=== PATIENT | female | born 1965 | race American Indian/Alaskan Native ===

== ENCOUNTER 2019-03-26 07:14 | Day surgery (SDC) | payer OTHER ==
--- NOTE | 2019-03-26 07:50 | CP.SDSHP ---
<Raj Rodríguez - Last Filed: 03/26/19 09:20> Same Day Surgery H & P - History Proposed Procedure: EGD Pre-Op Diagnosis: epigastric pain. nausea/vomiting. GERD - Previous Medical/Surgical History Misc: Other (sickle cell trait, thalessemia, endometrosis) Previous Surgical History: , ovarian cyst - Current Medications Current Medications: Denies - Physical Exam General Appearance: no acute distress Mental Status: Alert & Oriented x3 Neuro: WNL Heart: WNL Lungs: WNL GI: WNL (epigastric tenderness, no organomegaly, no distention; soft) - {Optional Preform as Required} Abdomen: Other (epigastric tenderness) - Impression Impression: epigastric pain. heartburn. sickle cell trait. thalessemia. endometrosis Pt. Evaluated Today:Candidate for Anesthesia & Procedure: Yes - Date & Time Date: 03/26/19 Time: 07:45 Short Stay Discharge - Short Stay Discharge Admitting Diagnosis/Reason for Visit: EPIGASTRIC PAIN / HEARTBURN / NAUSEA Disposition: HOME/ ROUTINE <Enzo Alonso - Last Filed: 03/26/19 09:27> Same Day Surgery H & P - Allergies Allergies: Allergies EGG Allergy (Verified 03/26/19 08:05) RASH levofloxacin [From Levaquin] Adverse Reaction (Verified 03/26/19 08:05) ANAPHYLAXIS - Physical Exam Vital Signs: Vital Signs 03/26/19 07:45 Temperature 98.2 F Pulse Rate 100 H Respiratory 20 Rate Blood Pressure 121/99 H O2 Sat by Pulse 100 Oximetry Attending/Attestation - Attestation I have personally seen and examined this patient.: Yes I have fully participated in the care of the patient.: Yes I have reviewed all pertinent clinical information: Yes Notes (Text): 03/26/19 09:23 Patient unable to eat with weakness and persistent N/V, advised to go to ER for evaluation but refused stating my PCP told me to see GI and have an EGD done since i had similar symtpoms before. Risks and benefits understood. EGD to be done and if findings are negative will refer to ED upon discharge.
[2019-03-26 08:06] VITALS: BMI 36.5
[2019-03-26] MEDS ORDERED: Midazolam 2 MG/2 ML VIAL ONE (10:07)
[2019-03-26] MEDS ORDERED: Propofol 10 mg/ml Inj (20 ML) ONE (10:07)
[2019-03-26] MEDS ORDERED: Lidocaine Hydrochloride 5 ML INJ ONE (10:08)
[2019-03-26] MEDS ORDERED: Pantoprazole 40 mg EC Tab PO ONE (10:15)
[2019-03-26 12:47] VITALS: TEMP 98
[2019-03-26 12:53] VITALS: BP 124/92; PULSE 84; RESP 16; O2SAT 99
--- NOTE | 2019-03-27 11:17 | CARD ---
APPROVED REPORT Date of service: 03/26/2019 EKG Measurement Heart [id number] <Conclusion> Normal sinus rhythm Junctional ST depression, probably normal Borderline ECG
== END 2019-03-26 13:30 | disposition home or self-care (01) ==
LOC: C.ENDO 07:14
PROVIDERS: ATTEND Internal Medicine Gastroenterology
DX: K21.0 Gastro-esophageal reflux disease with esophagitis (principal); K44.9 Diaphragmatic hernia without obstruction or gangrene; K29.70 Gastritis, unspecified, without bleeding; D57.3 Sickle-cell trait
CPT/HCPCS: 36415; 43239; 84702; 88305; J2250; J2704; J3010

== ENCOUNTER 2019-03-26 14:08 | Inpatient (IN) | payer OTHER ==
[2019-03-26 14:09] VITALS: BMI 36.5
[2019-03-26] MEDS ORDERED: Sodium Chloride 0.9% 1,000 ML IV ONE (15:12)
[2019-03-26 15:47] LABS: BASO % 0.2 % (0.0-2.0); EOS % 0.1 % (0.0-4.0); HEMOGLOBIN 15.3 g/dL (11.0-16.0); LYMPH # 0.8 K/uL (1.0-4.3); LYMPH % 17.6 % (20.0-40.0); MEAN CELL VOLUME 85.1 fL (81.0-99.0); MEAN CORPUSCULAR HEMOGLOBIN 28.6 pg (27.0-31.0); MEAN CORPUSCULAR HGB CONC 33.6 g/dL (33.0-37.0); MEAN PLATELET VOLUME 10.7 fL (7.2-11.7); MONO # 0.4 K/uL (0.0-0.8); MONO % 8.9 % (0.0-10.0); NEUT # 3.2 K/uL (1.8-7.0); NEUT % 73.2 % (50.0-75.0); NRBC % 0.2 % (0.0-2.0); RBC 5.35 Mil/uL (3.80-5.20); RED CELL DISTRIBUTION WIDTH 14.8 % (11.5-14.5); WHITE BLOOD COUNT 4.4 K/uL (4.8-10.8)
[2019-03-26 16:06] LABS: BLOOD UREA NITROGEN 13 mg/dL (7-17); CALCIUM 9.1 mg/dl (8.6-10.4); GFR NON-AFRICAN AMERICAN > 60; LIPASE 29 U/L (23-300)
[2019-03-26] MEDS ORDERED: Iodixanol 320 MG/ML 100 ML BOTTLE IV ONE (16:24)
[2019-03-26 16:45] LABS: ALB/GLOB RATIO 1.1 (1.0-2.1); ALBUMIN 4.2 g/dL (3.5-5.0); ALT/SGPT 17 U/L (9-52); AST/SGOT 35 U/L (14-36)
--- NOTE | 2019-03-26 17:49 | CT ---
Date of service: 03/26/2019 PROCEDURE: CT Abdomen and Pelvis with contrast HISTORY: left-sided abdominal pain s/p endoscopy COMPARISON: None. TECHNIQUE: Intravenous contrast dose: 100 cc Visipaque 320. Radiation dose: Total exam DLP = 1172.39 mGy-cm. This CT exam was performed using one or more of the following dose reduction techniques: Automated exposure control, adjustment of the mA and/or kV according to patient size, and/or use of iterative reconstruction technique. FINDINGS: LOWER THORAX: Unremarkable. LIVER: Unremarkable. No gross lesion or ductal dilatation. Incidental low-attenuation area in the posterior segment right hepatic lobe of uncertain etiology or significance. This is an amorphous focus. No additional abnormalities detected. GALLBLADDER AND BILE DUCTS: Unremarkable. PANCREAS: Unremarkable. No gross lesion or ductal dilatation. SPLEEN: Unremarkable. ADRENALS: Unremarkable. No mass. KIDNEYS AND URETERS: Unremarkable. No hydronephrosis. No solid mass. VASCULATURE: Unremarkable. No aortic aneurysm. No atherosclerotic calcification or mural plaque present. BOWEL: Diffuse gastric wall thickening in the nondistended stomach. No focal masses identified. Diverticulosis without an acute inflammatory component or other associated pathologic process. APPENDIX: A normal appendix is visualized in it's entirety. PERITONEUM: Unremarkable. No free fluid. No free air. LYMPH NODES: Unremarkable. No enlarged lymph nodes. BLADDER: Unremarkable. REPRODUCTIVE: Unremarkable. BONES: No acute fracture. OTHER FINDINGS: None. IMPRESSION: No acute findings related to/ accounting for the clinical presentation. Diffuse gastric wall thickening. Focal area of abnormal attenuation/contrast enhancement in the posterior segment the right hepatic lobe.
[2019-03-26 19:44] LABS: SQUAMOUS EPITHIAL 1 /hpf (0-5); URINE BILIRUBIN NEGATIVE (NEGATIVE); URINE BLOOD NEGATIVE (NEGATIVE); URINE CLARITY Clear (Clear); URINE COLOR Yellow (YELLOW); URINE GLUCOSE (UA) NORMAL (Normal); URINE LEUKOCYTE ESTERASE NEG Leu/uL (Negative); URINE PROTEIN NEGATIVE (NEGATIVE)
--- NOTE | 2019-03-26 21:15 | C.PDOC ---
History Of Present Illness 53 y/o female presents to the ER s/p endoscopy complaining of left sided abdominal pain. Patient states that she is not able to keep much PO down for the past several days prior to endoscopy. Patient reports that she had has been hav ing multiple episodes of nausea and vomiting.Denies having fever,chills,CP,SOB,and diarrhea. Chief Complaint (Nursing): GI Problem History Per: Patient History/Exam Limitations: no limitations Onset/Duration Of Symptoms: Days Current Symptoms Are (Timing): Still Present Severity: Moderate Past Medical History Reviewed: Historical Data, Nursing Documentation, Vital Signs Vital Signs: Last Vital Signs Temp Pulse 70 03/26/19 20:36 Resp 14 03/26/19 20:36 BP 124/72 03/26/19 20:36 Pulse Ox 97 03/26/19 20:36 Primary Care Provider: Non [facility] Provider, - Medical History PMH: Anemia, Gastritis Denies: Chronic Kidney Disease Surgical History: Endoscopy Family History: States: No Known Family Hx - Social History Hx Alcohol Use: No Hx Substance Use: No - Immunization History Hx Tetanus Toxoid Vaccination: No Hx Influenza Vaccination: No Hx Pneumococcal Vaccination: No Review Of Systems Except As Marked, All Systems Reviewed And Found Negative. Constitutional: Negative for: Fever, Chills Gastrointestinal: Positive for: Nausea, Vomiting, Abdominal Pain. Negative for: Diarrhea Physical Exam - Physical Exam Appears: Other (pt is actively vomiting in ER) Skin: Normal Color, Warm, Dry Head: Atraumatic, Normacephalic Eye(s): bilateral: Normal Inspection Nose: Normal Oral Mucosa: Moist Neck: Supple Chest: Symmetrical Cardiovascular: Rhythm Regular Respiratory: Normal Breath Sounds, No Rales, No Rhonchi, No Wheezing Gastrointestinal/Abdominal: Soft, Tenderness (LUQ tenderness), No Guarding, No Rebound Neurological/Psych: Oriented x3, Normal Speech ED Course And Treatment - Laboratory Results Result Diagrams: 03/26/19 15:40 03/26/19 15:40 Lab Results: Total Bilirubin 1.3 mg/dL (0.2-1.3) 03/26/19 15:40 AST 35 U/L (14-36) 03/26/19 15:40 ALT 17 U/L (9-52) 03/26/19 15:40 Alkaline Phosphatase 61 U/L (38-126) 03/26/19 15:40 Total Protein 8.0 g/dL (6.3-8.3) 03/26/19 15:40 Albumin 4.2 g/dL (3.5-5.0) 03/26/19 15:40 Globulin 3.8 gm/dL (2.2-3.9) 03/26/19 15:40 Albumin/Globulin Ratio 1.1 (1.0-2.1) 03/26/19 15:40 Lipase 29 U/L (23-300) 03/26/19 15:40 Urine Color Yellow (YELLOW) 03/26/19 19:33 Urine Clarity Clear (Clear) 03/26/19 19:33 Urine pH 6.0 (5.0-8.0) 03/26/19 19:33 Ur Specific [place] 1.045 (1.003-1.030) H 03/26/19 19:33 Urine Protein Negative mg/dL (NEGATIVE) 03/26/19 19:33 Urine Glucose (UA) Normal mg/dL (Normal) 03/26/19 19:33 Urine Ketones 1+ mg/dL (NEGATIVE) H 03/26/19 19:33 Urine Blood Negative (NEGATIVE) 03/26/19 19:33 Urine Nitrate Negative (NEGATIVE) 03/26/19 19:33 Urine Bilirubin Negative (NEGATIVE) 03/26/19 19:33 Urine Urobilinogen 2.0 mg/dL (0.2-1.0) H 03/26/19 19:33 Ur Leukocyte Esterase Neg Travis/uL (Negative) 03/26/19 19:33 Urine WBC (Auto) 2 /hpf (0-5) 03/26/19 19:33 Urine RBC (Auto) 1 /hpf (0-3) 03/26/19 19:33 Ur Squamous Epith Cells 1 /hpf (0-5) 03/26/19 19:33 O2 Sat by Pulse Oximetry: 97 (RA) Pulse Ox Interpretation: Normal - CT Scan/US CT-Abd & Pelv. Other Rad Studies (CT/US): Read By Radiologist, Radiology Report Reviewed CT/US Interpretation: Date of service: 03/26/2019. PROCEDURE: CT Abdomen and Pelvis with contrast. HISTORY: left-sided abdominal pain s/p endoscopy. COMPARISON: None. TECHNIQUE: Intravenous contrast dose: 100 cc Visipaque 320. Radiation dose: Total exam DLP = 1172.39 mGy-cm. This CT exam was performed using one or more of the following dose reduction techniques: Automated exposure control, adjustment of the mA and/or kV according to patient size, and/or use of iterative reconstruction technique. FINDINGS: LOWER THORAX: Unremarkable. LIVER: Unremarkable. No gross lesion or ductal dilatation. Incidental low- attenuation area in the posterior segment right hepatic lobe of uncertain etiology or significance. This is an amorphous focus. No additional abnorma lities detected. GALLBLADDER AND BILE DUCTS: Unremarkable. PANCREAS: Unremarkable. No gross lesion or ductal dilatation. SPLEEN: Unremarkable. ADRENALS: Unremarkable. No mass. KIDNEYS AND URETERS: Unremarkable. No hydronephrosis. No solid mass. VASCULATURE: Unremarkable. No aortic aneurysm. No atherosclerotic calcification or mural plaque present. BOWEL: Diffuse gastric wall thickening in the nondistended stomach. No focal masses identified. Diverticulosis without an acute inflammatory component or other associated pathologic process. APPENDIX: A normal appendix is visualized in it's entirety. PERITONEUM: Unremarkable. No free fluid. No free air. LYMPH NODES: Unremarkable. No enlarged lymph nodes. BLADDER: Unremarkable. REPRODUCTIVE: Unremarkable. BONES: No acute fracture. OTHER FINDINGS: None. IMPRESSION: No acute findings related to/ accounting for the clinical presentation. Diffuse gastric wall thickening. Focal area of abnormal attenuation/contrast enhancement in the posterior segment the right hepatic lobe. Medical Decision Making Medical Decision Making: Plan: --Labs --UA --CT-Abd & Pelv. --IV Fluids --Pepcid IV --Zofran IV Updates: On re-evaluation, patient continues to vomit in ER despite medications. Case discussed with . Patient will be admitted under the service of for intractable vomiting. Disposition - Disposition Disposition: HOSPITALIZED Disposition Time: 17:30 Condition: STABLE - Clinical Impression Clinical Impression: Gastritis, Intractable vomiting - Scribe Statement The provider has reviewed the documentation as recorded by the Wanda Parks Provider Attestation: All medical record entries made by the Saumyaibjeromy were at my direction and personally dictated by me. I have reviewed the chart and agree that the record accurately reflects my personal performance of the history, physical exam, medical decision making, and the department course for this patient. I have also personally directed, reviewed, and agree with the discharge instructions and disposition.
[2019-03-26] MEDS: Dextrose 5%/0.45% NS 1,000 ML IV SCH (22:12)
--- NOTE | 2019-03-27 09:09 | CP.PCM.PN ---
Subjective - Date & Time of Evaluation Date of Evaluation: 03/27/19 Time of Evaluation: 08:45 - Subjective Subjective: PGY [address] Montelongo 53 year old female with past medical history of endometriosis, ovarian cysts, fibromyalgia, thalasemia anemia (pt unsure of which type), sickle cell trait, gastritis is admitted ot hospital for intractable vomiting.l Patient states that for past 1 month she has nausea and vomiting. she is unable to tolerate po intake as it causes her to vomit. Patient was seen by PMD who sent patient to GI, Dr. Betancur. After performing EGD yesterday (03/26), pt was sent to ED by Dr. Betancur as her N/V did not resolve. In ED, CT of abd/pelvis with IV contrast showed diffuse gastric wall thickening. Currently, pt continues ot complain of abdominal pain in epigastric region and nausea. Also C/O chest pain. denies having any F/C, change sin bowel or bladder. PMHx: stated above Sx; c section 1986, EGD 03/26/19 Social; denies tobacco, ETOH or drug use Objective - Vital Signs/Intake and Output Vital Signs (last 24 hours): Temp Pulse Resp BP Pulse Ox 98.1 F 66 20 142/83 99 03/27/19 00:10 03/27/19 00:10 03/27/19 00:10 03/27/19 00:10 03/27/19 00:10 - Medications Medications: Current Medications Enoxaparin Sodium (Lovenox) 40 mg SC DAILY [facility] Dextrose/Sodium Chloride (Dextrose 5%/0.45% Ns 1000 Ml) 1,000 mls @ 100 mls/hr IV .Q10H [facility] Last Admin: 03/26/19 22:12 Dose: 100 mls/hr Ondansetron HCl (Zofran Inj) 4 mg IVP Q6H PRN PRN Reason: Nausea/Vomiting Last Admin: 03/27/19 04:42 Dose: 4 mg Pantoprazole Sodium (Protonix Inj) 40 mg IVP DAILY [facility] - Labs Labs: 03/26/19 15:40 03/26/19 15:40 - Constitutional Appears: Non-toxic, No Acute Distress - Head Exam Head Exam: ATRAUMATIC, NORMOCEPHALIC - ENT Exam ENT Exam: Mucous Membranes Moist - Respiratory Exam Respiratory Exam: Clear to Ausculation Bilateral. absent: Accessory Muscle Use, Rales, Rhonchi, Wheezes, Respiratory Distress - Cardiovascular Exam Cardiovascular Exam: REGULAR RHYTHM, +S1, +S2. absent: Gallop, Rubs, Murmur - GI/Abdominal Exam GI & Abdominal Exam: Soft, Normal Bowel Sounds. absent: Distended, Firm, Guarding, Rigid, Tenderness, Organomegaly - Extremities Exam Extremities Exam: absent: Pedal Edema, Tenderness - Neurological Exam Neurological Exam: Alert, Awake, Oriented x3 - Psychiatric Exam Psychiatric exam: Normal Affect, Normal Mood - Skin Skin Exam: Dry, Intact, Normal Color, Warm Assessment and Plan - Assessment and Plan (Free Text) Assessment: 53 year old male with past medical history of sickle cell trait, thalasemia, endometriosis is admitted for intracatable vomiting Intractable vomiting - CT of abd/pelvis with IV contrast showed diffuse gastric wall thickening; focal area of abnormal attenuation in posterior segment of hepatic lobe - Continue zofran and protanix - will check Hgb A1c with concern for gastroperesis - will check UDS with concern for marijuana cyclic vomiting syndrome - will check abd US - continue D5/half NS at 100 cc - NPO - PT/OT Chest pain - will check serial AMOL and EKGs Gastritis - Avoid NSAIDs and Aspirin - protonix 40 IV qd Hpokalemia - Potassium this morning 2.7 - potassium chloride IV Prophylaxis - Lovenox - SCDs - Protonix case will be discussed with attending, Dr. Montelongo. All orders and management per Dr. Montelongo
[2019-03-27] MEDS: Dextrose 5%/0.45% NS 1,000 ML IV SCH ×2 (09:35→17:55)
[2019-03-27] MEDS: Enoxaparin 40 mg Syringe SC SCH (09:41)
[2019-03-27 12:13] LABS: BASO % 0.2 % (0.0-2.0); EOS % 0.1 % (0.0-4.0); HEMOGLOBIN 13.9 g/dL (11.0-16.0); LYMPH # 0.8 K/uL (1.0-4.3); LYMPH % 16.3 % (20.0-40.0); MEAN CELL VOLUME 85.7 fL (81.0-99.0); MEAN CORPUSCULAR HEMOGLOBIN 29.2 pg (27.0-31.0); MEAN CORPUSCULAR HGB CONC 34.1 g/dL (33.0-37.0); MEAN PLATELET VOLUME 11.3 fL (7.2-11.7); MONO # 0.4 K/uL (0.0-0.8); MONO % 8.8 % (0.0-10.0); NEUT # 3.5 K/uL (1.8-7.0); NEUT % 74.6 % (50.0-75.0); NRBC % 0.1 % (0.0-2.0); RBC 4.75 Mil/uL (3.80-5.20); RED CELL DISTRIBUTION WIDTH 14.6 % (11.5-14.5); WHITE BLOOD COUNT 4.6 K/uL (4.8-10.8)
[2019-03-27 12:39] LABS: ALBUMIN 3.4 g/dL (3.5-5.0); ALT/SGPT 29 U/L (9-52); AST/SGOT 23 U/L (14-36); BLOOD UREA NITROGEN 8 mg/dL (7-17); CALCIUM 8.8 mg/dl (8.6-10.4); GFR NON-AFRICAN AMERICAN > 60; HDL CHOLESTEROL 23 mg/dL (30-70)
[2019-03-27 12:41] LABS: LDL CHOLESTEROL 96 mg/dL (0-129)
[2019-03-27 12:45] LABS: CK-MB 0.66 ng/mL (0.0-3.38)
[2019-03-27 18:23] LABS: BARBITURATES, UR NEGATIVE (NEGATIVE); OPIATES, UR NEGATIVE (NEGATIVE); PHENCYCLIDINE, UR NEGATIVE (NEGATIVE)
[2019-03-27 18:25] LABS: BENZODIAZEPINES, UR POSITIVE (NEGATIVE)
[2019-03-28] MEDS: Dextrose 5%/0.45% NS 1,000 ML IV SCH (02:00)
--- NOTE | 2019-03-28 06:28 | HP ---
HISTORY OF PRESENT ILLNESS: The patient is a 53 year-old female chief complaint of generalized weakness, fatigue, tiredness, nausea, vomiting, persistent gastritis. Advised to coming to the hospital. PHYSICAL EXAMINATION: GENERAL: The patient is awake, alert, and oriented. VITAL SIGNS: Temperature 98, pulse 90. HEENT: Within normal limits. NECK: Supple. CHEST: Symmetrical. HEART: Regular. ABDOMEN: Soft. EXTREMITIES: No edema. IMPRESSION AND PLAN: The patient suffers from gastritis. The patient to get bed rest, supportive care. Intravenous fluids. Zofran and Protonix. Sheri Montelongo MD
[2019-03-28 08:00] LABS: ALBUMIN 3.3 g/dL (3.5-5.0); ALT/SGPT 34 U/L (9-52); AST/SGOT 37 U/L (14-36); BLOOD UREA NITROGEN 7 mg/dL (7-17); CALCIUM 8.7 mg/dl (8.6-10.4); GFR NON-AFRICAN AMERICAN > 60
--- NOTE | 2019-03-28 08:30 | CP.PCM.PN ---
Subjective - Date & Time of Evaluation Date of Evaluation: 03/28/19 Time of Evaluation: 08:28 - Subjective Subjective: PGY3 progress note for Dr. Montelongo Pt seen and examined at bedside. No acute events overnight. Still c/o nausea and vomiting. Denies having any CP, SOB, abd pain, F/C. Patient had FLOTATION TENDER called this morning after she became weak and hypotensive on the commode. Pt was lethargic but responding to questions and following commands. Objective - Vital Signs/Intake and Output Vital Signs (last 24 hours): Temp Pulse Resp BP Pulse Ox 98.4 F 69 20 120/75 100 03/27/19 23:10 03/27/19 23:10 03/27/19 23:10 03/27/19 23:10 03/27/19 23:10 - Medications Medications: Current Medications Enoxaparin Sodium (Lovenox) 40 mg SC DAILY [facility] Last Admin: 03/27/19 09:41 Dose: 40 mg Potassium Chloride 20 meq/ (Dextrose/Sodium Chloride) 1,010 mls @ 100 mls/hr IV .Q10H6M [facility] Ondansetron HCl (Zofran Inj) 4 mg IVP Q6H PRN PRN Reason: Nausea/Vomiting Last Admin: 03/28/19 06:31 Dose: 4 mg Pantoprazole Sodium (Protonix Inj) 40 mg IVP DAILY [facility] Last Admin: 03/27/19 10:11 Dose: Not Given - Labs Labs: 03/27/19 12:00 03/28/19 07:19 - Constitutional Appears: Non-toxic, No Acute Distress - Head Exam Head Exam: ATRAUMATIC, NORMOCEPHALIC - ENT Exam ENT Exam: Mucous Membranes Moist - Respiratory Exam Respiratory Exam: Clear to Ausculation Bilateral. absent: Accessory Muscle Use, Rales, Rhonchi, Wheezes, Stridor - Cardiovascular Exam Cardiovascular Exam: REGULAR RHYTHM, +S1, +S2. absent: Gallop, Rubs, Murmur - GI/Abdominal Exam GI & Abdominal Exam: Soft, Normal Bowel Sounds. absent: Distended, Firm, Guarding, Rigid, Tenderness, Organomegaly - Extremities Exam Extremities Exam: absent: Pedal Edema, Tenderness - Neurological Exam Neurological Exam: Alert, Awake, Oriented x3 - Psychiatric Exam Psychiatric exam: Normal Affect, Normal Mood - Skin Skin Exam: Dry, Intact, Normal Color, Warm Assessment and Plan - Assessment and Plan (Free Text) Assessment: 53 year old male with past medical history of sickle cell trait, thalasemia, endometriosis is admitted for intracatable vomiting Intractable vomiting - CT of abd/pelvis with IV contrast showed diffuse gastric wall thickening; focal area of abnormal attenuation in posterior segment of hepatic lobe - Continue zofran and protanix - HgbA1c is 4.9 - UDS negative for marijuana. positive for benzo - continue D5/half NS at 100 cc + potassium chloride 20 mEq - diet advanced to CLD - PT/OT Chest pain - AMOL x 2 negative - EKG pending Gastritis - Avoid NSAIDs and Aspirin - protonix 40 IV qd Hpokalemia - D5/ 1/2 NS + 20 mEq of Potassium chloride at 100 cc - likely 2/2 N/V Hypotension -IV fluid bolus -EKG showed sinus roberto with prolonged QTc. troponins x 3 negative -CT of head showed no acute abnormality - Stat narcan given but pts symptoms didnt improve. Prophylaxis - Lovenox - SCDs - Protonix case will be discussed with attending, Dr. Montelongo. All orders and management per Dr. Montelongo
[2019-03-28] MEDS: Enoxaparin 40 mg Syringe SC SCH (10:01)
--- NOTE | 2019-03-28 10:39 | PCM.RRT ---
FRUIT OR NUT FARMER Nurses Assessment - Situation Date: 03/28/19 Time FRUIT OR NUT FARMER was called: 10:35 FRUIT OR NUT FARMER Responder Arrival Time:: 10:37 FRUIT OR NUT FARMER Location:: Med/Surg Room Number: 651B FRUIT OR NUT FARMER Reason for Call: Hypotension, Change in Mental Status - IV IV Inserted during FRUIT OR NUT FARMER?: No IV Fluids Initiated During FRUIT OR NUT FARMER?: 1L NS - Respiratory FRUIT OR NUT FARMER Delivery Method: Room Air, Nasal Cannula @L/min (1) Oxygen Flow Rate: 1 Received Nebulizer Treatments: No Was the Patient Ventilated with Bag/Mask 100% O2?: No Secretions Suctioned?: No Was the Patient Intubated?: No Was the Patient Placed on a Ventilator?: No - Medication Medications Administered During FRUIT OR NUT FARMER: none - Diagnostic Test Ordered EKG: Yes Chest X-Ray: Yes CT Scan: Yes (head) - Stat Labs Ordered FRUIT OR NUT FARMER Stat Labs Ordered: TROPONIN FRUIT OR NUT FARMER Other Labs Ordered: UDS CPR started during FRUIT OR NUT FARMER?: No - Vital Signs Vital Signs: BP 68/52 HR spO2 97% on RA - Jose Elias Coma Scale Coma Scale Eye Opening: Spontaneous Coma Scale Motor: Obeys Commands Movement Coma Scale Verbal: Confused/able to answer Coma Scale Total: 14 - Sepsis Screen Part 1 Sepsis Screen Part 1: Hypotensive - Time FRUIT OR NUT FARMER Ended Time FRUIT OR NUT FARMER Ended: 11:00 - Vital Signs at end of FRUIT OR NUT FARMER Vital Signs at end of FRUIT OR NUT FARMER: 118/69 HR 51 spO2 97% on 1 L - Recommendations 5) FRUIT OR NUT FARMER Level of Care Recommendations: Transfer to Telemetry Notifications: Attending Physician I.Reason for FRUIT OR NUT FARMER - A) Acute Change in Patient: (Select all that apply): Acute change in mental status, Acute change in SBP below Subjective: FRUIT OR NUT FARMER called for acute weakness/mental change and hypotension. Patient was on the bedside commode when suddenly, she felt weak, collapsed, and stopped talking. Patient required full assist back into bed. Vitals done and BP was 68/52. Patient put in Trendelenburg and started on 1L NS. Patient was able to talk and move extremities. She was oriented to person and place. She could not describe how she felt. Nurse said prior to episode, she was fully alert and oriented. She reports that patient just had a visitor- her significant other, Evans. Patient denies taking any food/drinks/mediations/drugs that she was not supposed to. Patient's BP improved. Her HR fluctuated from 50s-70s. Stat Amol, UDS, CT head, CXR, and EKG ordered. Patient's first 2 ROMIs negative. CBC and CMP done this morning without any acute abnormalities. Patient was admitted yesterday and was positive for benzos. - Neurological Status (Select all that apply): Alert, Responsive, Verbal, Follows Commands, Lethargic - Respiratory Oxygen Delivery Method: Room Air, Nasal Cannula @L/min (1) Oxygen Flow Rate: 1 - Constitutional Appears: Non-toxic, No Acute Distress, Confused - Head Head Exam: ATRAUMATIC, NORMAL INSPECTION - Eyes Eye Exam: EOMI, PERRL - Respiratory Exam Respiratory Exam: Clear to Ausculation Bilateral, NORMAL BREATHING PATTERN - Cardiovascular Exam Cardiovascular Exam: Bradycardia - GI/Abdominal Exam GI & Abdominal Exam: Soft. absent: Distended - Neurological Exam Neurological Exam: Alert, Altered, Awake Additional exam: able to move all limbs equally answers questions slowly, minimal verbally responsive follows commands - Extremities Exam Extremities Exam: Normal Inspection Plan - Assessment of Findings&Treatment Plan 53 year old female with past medical history of endometriosis, ovarian cysts, fibromyalgia, thalasemia anemia (pt unsure of which type), sickle cell trait, gastritis is admitted to hospital for intractable vomiting. FRUIT OR NUT FARMER called for sudden weakness/AMS and hypotension. Plan: - Place in Trendelenberg - 1 L NS bolus - Stat AMOL (first 2 negative) - Stat EKG - Stat CXR - Stat head CT - Stat UDS via straight cath (positive for benzos on admission) - Place on telemetry - Dr. Montelongo's resident, Dr. Mckeon, present during FRUIT OR NUT FARMER
[2019-03-28] MEDS ORDERED: Sodium Chloride 0.9% 1,000 ML IV ONE (10:54)
[2019-03-28] MEDS ORDERED: Naloxone 0.4 mg/ml Inj (Adult) IVP ONE (11:30)
[2019-03-28 11:35] LABS: BASO % 0.5 % (0.0-2.0); EOS % 0.6 % (0.0-4.0); HEMOGLOBIN 14.6 g/dL (11.0-16.0); LYMPH # 0.7 K/uL (1.0-4.3); LYMPH % 20.8 % (20.0-40.0); MEAN CELL VOLUME 85.8 fL (81.0-99.0); MEAN CORPUSCULAR HEMOGLOBIN 28.8 pg (27.0-31.0); MEAN CORPUSCULAR HGB CONC 33.5 g/dL (33.0-37.0); MEAN PLATELET VOLUME 11.3 fL (7.2-11.7); MONO # 0.3 K/uL (0.0-0.8); MONO % 8.8 % (0.0-10.0); NEUT # 2.3 K/uL (1.8-7.0); NEUT % 69.3 % (50.0-75.0); NRBC % 0.1 % (0.0-2.0); RBC 5.09 Mil/uL (3.80-5.20); RED CELL DISTRIBUTION WIDTH 14.5 % (11.5-14.5); WHITE BLOOD COUNT 3.3 K/uL (4.8-10.8)
--- NOTE | 2019-03-28 11:47 | CT ---
Date of service: 03/28/2019 PROCEDURE: CT HEAD WITHOUT CONTRAST. HISTORY: bakery worker COMPARISON: None available. TECHNIQUE: Axial computed tomography images were obtained through the head/brain without intravenous contrast. Radiation dose: Total exam DLP = 922.11 mGy-cm. This CT exam was performed using one or more of the following dose reduction techniques: Automated exposure control, adjustment of the mA and/or kV according to patient size, and/or use of iterative reconstruction technique. FINDINGS: HEMORRHAGE: No intracranial hemorrhage. BRAIN: No mass effect or edema. No atrophy or chronic microvascular ischemic changes. VENTRICLES: Unremarkable. No hydrocephalus. CALVARIUM: Unremarkable. PARANASAL SINUSES: Unremarkable as visualized. No significant inflammatory changes. MASTOID AIR CELLS: Unremarkable as visualized. No inflammatory changes. OTHER FINDINGS: None. IMPRESSION: Normal CT of the Head. No intracranial mass, hemorrhage or evidence of acute infarct.
[2019-03-28 11:59] LABS: CK-MB 0.28 ng/mL (0.0-3.38)
[2019-03-28] MEDS: Potassium Chloride 20 MEQ in Dextrose 5%/0.45% NS 1,000 ML IV SCH ×3 (12:02→21:03)
[2019-03-28 12:31] LABS: BARBITURATES, UR NEGATIVE (NEGATIVE); BENZODIAZEPINES, UR NEGATIVE (NEGATIVE); OPIATES, UR NEGATIVE (NEGATIVE); PHENCYCLIDINE, UR NEGATIVE (NEGATIVE)
--- NOTE | 2019-03-28 12:36 | RAD ---
HISTORY: media specialist COMPARISON: None available TECHNIQUE: Chest, one view. FINDINGS: Examination limited by habitus, hypoinflation, and mild patient obliquity. Numerous external wires and leads obscure evaluation of the underlying parenchyma. LUNGS: No focal consolidation. Please note that chest x-ray has limited sensitivity for the detection of pulmonary masses. PLEURA: No significant pleural effusion identified. No definite pneumothorax . CARDIOVASCULAR: The cardiomediastinal silhouette appears within normal limits of size. No significant atherosclerotic calcification present. OSSEOUS STRUCTURES: No acute osseous abnormality identified. VISUALIZED UPPER ABDOMEN: Mild elevation of the right hemidiaphragm. OTHER FINDINGS: None. IMPRESSION: No acute findings identified.
--- NOTE | 2019-03-29 07:43 | CP.PCM.PN ---
Subjective - Date & Time of Evaluation Date of Evaluation: 03/29/19 Time of Evaluation: 07:41 - Subjective Subjective: PGY3 note for Dr Montelongo's service Pt seen and examined at bedside. Nursing reports no acute events overnight. Patient states she stills feels nauseous this AM but denies vomiting. Pt with [employer] yesterday for vasovagal hypotensive episode. States she is willing to attempt to advance diet. She denies chest pain, SOB, cough, fever or chills. Objective - Vital Signs/Intake and Output Vital Signs (last 24 hours): Temp Pulse Resp BP Pulse Ox 98.1 F 57 L 20 119/74 98 03/28/19 23:10 03/29/19 03:38 03/28/19 23:10 03/28/19 23:10 03/28/19 23:10 - Medications Medications: Current Medications Enoxaparin Sodium (Lovenox) 40 mg SC DAILY [facility] Last Admin: 03/28/19 10:01 Dose: Not Given Potassium Chloride 20 meq/ (Dextrose/Sodium Chloride) 1,010 mls @ 100 mls/hr IV .Q10H6M [facility] Last Admin: 03/28/19 21:03 Dose: 100 mls/hr Ondansetron HCl (Zofran Inj) 4 mg IVP Q6H PRN PRN Reason: Nausea/Vomiting Last Admin: 03/28/19 17:56 Dose: 4 mg Pantoprazole Sodium (Protonix Inj) 40 mg IVP DAILY [facility] Last Admin: 03/28/19 09:59 Dose: 40 mg - Labs Labs: 03/28/19 11:24 03/28/19 07:19 - Additional Findings Additional findings: - Constitutional Appears: Non-toxic, No Acute Distress - Head Exam Head Exam: ATRAUMATIC, NORMOCEPHALIC - ENT Exam ENT Exam: Mucous Membranes Moist - Respiratory Exam Respiratory Exam: Clear to Ausculation Bilateral. absent: Accessory Muscle Use, Rales, Rhonchi, Wheezes, Stridor - Cardiovascular Exam Cardiovascular Exam: REGULAR RHYTHM, +S1, +S2. absent: Gallop, Rubs, Murmur - GI/Abdominal Exam GI & Abdominal Exam: Soft, Normal Bowel Sounds. absent: Distended, Firm, Guarding, Rigid, Tenderness, Organomegaly - Extremities Exam Extremities Exam: absent: Pedal Edema, Tenderness - Neurological Exam Neurological Exam: Alert, Awake, Oriented x3 - Psychiatric Exam Psychiatric exam: Normal Affect, Normal Mood - Skin Skin Exam: Dry, Intact, Normal Color, Warm Assessment and Plan - Assessment and Plan (Free Text) Plan: Assessment: 53 year old male with past medical history of sickle cell trait, thalasemia, endometriosis is admitted for intractable vomiting Intractable vomiting; Gastritis; Small hernia CT of abd/pelvis with IV contrast showed diffuse gastric wall thickening; focal area of abnormal attenuation in posterior segment of hepatic lobe EGD (03/26/19): small hiatal hernia, Gastritis, Reflux esophagitis Biopsy of antrum/esophagus/duodenum: negative for h pylori/fungal organisms, mild chronic inflammation HOLD zofran due to prolonged QTc HgbA1c is 4.9 UDS negative for marijuana. positive for benzo Diet advanced to soft PT/OT Prolonged QTc; Bradycardia EKG (03/27/19): Qtc > 500 Avoid Antiemetics Will not start BB due to bradycardia Transaminitis May be side effect from Zofran, which we are holding for prolonged Qtc Chest pain AMOL x 3 negative EKG (03/28/19): Sinus roberto @ 51 bpm, prolonged Qtc Gastritis Avoid NSAIDs and Aspirin protonix 40 IV qd Hypokalemia likely 2/2 N/V 2.9 on 5/3 AM labs - will correct w/ IV this AM; f/u 2pm BMP Hypotension EKG showed sinus roberto with prolonged QTc. troponins x [address] of head showed no acute abnormality Stat narcan given but pts symptoms didnt improve. Prophylaxis Lovenox SCDs Protonix Ensure BID Disposition: Will start marinol in attempt to stimulate appetite/antiemetic effects; will attempt soft diet this evening supplemented w/ ensure case discussed with attending, Dr. Montelongo. All orders and management per Dr. Reginald Gutierrez PGY3
[2019-03-29 07:45] LABS: BASO % 0.3 % (0.0-2.0); HEMOGLOBIN 15.2 g/dL (11.0-16.0); LYMPH # 0.7 K/uL (1.0-4.3); LYMPH % 23.7 % (20.0-40.0); MEAN CELL VOLUME 85.6 fL (81.0-99.0); MEAN CORPUSCULAR HEMOGLOBIN 28.4 pg (27.0-31.0); MEAN CORPUSCULAR HGB CONC 33.2 g/dL (33.0-37.0); MEAN PLATELET VOLUME 10.9 fL (7.2-11.7); MONO # 0.3 K/uL (0.0-0.8); MONO % 9.6 % (0.0-10.0); NEUT % 65.4 % (50.0-75.0); NRBC % 0.1 % (0.0-2.0); RBC 5.34 Mil/uL (3.80-5.20); RED CELL DISTRIBUTION WIDTH 14.5 % (11.5-14.5); WHITE BLOOD COUNT 3.1 K/uL (4.8-10.8)
[2019-03-29 08:20] LABS: ALBUMIN 3.3 g/dL (3.5-5.0); ALT/SGPT 78 U/L (9-52); AST/SGOT 57 U/L (14-36); BLOOD UREA NITROGEN 5 mg/dL (7-17); CALCIUM 8.6 mg/dl (8.6-10.4); GFR NON-AFRICAN AMERICAN > 60
[2019-03-29] MEDS: Enoxaparin 40 mg Syringe SC SCH ×2 (09:31→09:35)
[2019-03-29] MEDS: Potassium Chloride 20 MEQ in Dextrose 5%/0.45% NS 1,000 ML IV SCH (09:32)
[2019-03-29 17:05] LABS: BLOOD UREA NITROGEN 5 mg/dL (7-17); CALCIUM 8.1 mg/dl (8.6-10.4); GFR NON-AFRICAN AMERICAN > 60
[2019-03-30 09:06] LABS: BASO % 0.3 % (0.0-2.0); EOS # 0.1 K/uL (0.0-0.7); EOS % 1.7 % (0.0-4.0); LYMPH # 0.6 K/uL (1.0-4.3); LYMPH % 20.1 % (20.0-40.0); MEAN CELL VOLUME 86.3 fL (81.0-99.0); MEAN CORPUSCULAR HEMOGLOBIN 28.6 pg (27.0-31.0); MEAN CORPUSCULAR HGB CONC 33.2 g/dL (33.0-37.0); MEAN PLATELET VOLUME 11.4 fL (7.2-11.7); MONO # 0.4 K/uL (0.0-0.8); MONO % 11.5 % (0.0-10.0); NEUT # 2.1 K/uL (1.8-7.0); NEUT % 66.4 % (50.0-75.0); NRBC % 0.2 % (0.0-2.0); RBC 5.25 Mil/uL (3.80-5.20); RED CELL DISTRIBUTION WIDTH 14.7 % (11.5-14.5); WHITE BLOOD COUNT 3.2 K/uL (4.8-10.8)
[2019-03-30 09:23] LABS: ALBUMIN 3.3 g/dL (3.5-5.0); ALT/SGPT 129 U/L (9-52); AST/SGOT 85 U/L (14-36); BLOOD UREA NITROGEN 10 mg/dL (7-17); GFR NON-AFRICAN AMERICAN > 60
[2019-03-30] MEDS: Enoxaparin 40 mg Syringe SC SCH (10:22)
[2019-03-30] MEDS ORDERED: Potassium Chloride 20 mEq ER Tab PO ONE (18:00)
[2019-03-31 09:07] LABS: BLOOD UREA NITROGEN 11 mg/dL (7-17); CALCIUM 8.9 mg/dl (8.6-10.4); GFR NON-AFRICAN AMERICAN > 60
[2019-03-31] MEDS: Enoxaparin 40 mg Syringe SC SCH (09:59)
[2019-04-01] MEDS: Enoxaparin 40 mg Syringe SC SCH (09:19)
--- NOTE | 2019-04-01 09:34 | CP.PCM.PN ---
Subjective - Date & Time of Evaluation Date of Evaluation: 04/01/19 Time of Evaluation: 09:33 - Subjective Subjective: Progress note for Dr. Montelongo Patient was seen and examined at bedside in no acute distress. Patient denies vomiting, nausea, and was able to tolerate her meal. She says she feels weak and tired. She denies chest pain, palpitations, sob, dysuria, constipation. Objective - Vital Signs/Intake and Output Vital Signs (last 24 hours): Temp Pulse Resp BP Pulse Ox 98.4 F 88 18 117/83 96 04/01/19 07:00 04/01/19 07:00 04/01/19 07:00 04/01/19 07:00 04/01/19 07:00 - Medications Medications: Current Medications Dronabinol (Marinol) 2.5 mg PO BID [facility] Last Admin: 04/01/19 09:19 Dose: 2.5 mg Enoxaparin Sodium (Lovenox) 40 mg SC DAILY [facility] Last Admin: 04/01/19 09:19 Dose: Not Given Ondansetron HCl (Zofran Inj) 4 mg IVP Q6H PRN PRN Reason: Nausea/Vomiting Last Admin: 03/28/19 17:56 Dose: 4 mg Pantoprazole Sodium (Protonix Inj) 40 mg IVP DAILY [facility] Last Admin: 04/01/19 09:19 Dose: 40 mg - Labs Labs: 03/30/19 08:44 03/31/19 08:20 - Constitutional Appears: No Acute Distress - Head Exam Head Exam: ATRAUMATIC, NORMAL INSPECTION - Eye Exam Eye Exam: EOMI - ENT Exam ENT Exam: Mucous Membranes Moist - Respiratory Exam Respiratory Exam: Clear to Ausculation Bilateral, NORMAL BREATHING PATTERN. absent: Rales, Rhonchi, Wheezes, Respiratory Distress - Cardiovascular Exam Cardiovascular Exam: REGULAR RHYTHM, +S1, +S2 - GI/Abdominal Exam GI & Abdominal Exam: Soft, Normal Bowel Sounds. absent: Distended, Firm, Tende rness - Neurological Exam Neurological Exam: Alert, Awake, Oriented x3 - Psychiatric Exam Psychiatric exam: Normal Affect, Normal Mood - Skin Skin Exam: Dry, Normal Color, Warm Assessment and Plan - Assessment and Plan (Free Text) Plan: 53 year old male with past medical history of sickle cell trait, thalasemia, en dometriosis is admitted for intractable vomiting Intractable vomiting; Gastritis; Small hernia CT of abd/pelvis with IV contrast showed diffuse gastric wall thickening; focal area of abnormal attenuation in posterior segment of hepatic lobe EGD (03/26/19): small hiatal hernia, Gastritis, Reflux esophagitis Biopsy of antrum/esophagus/duodenum: negative for h pylori/fungal organisms, mild chronic inflammation HOLD zofran due to prolonged QTc HgbA1c is 4.9 UDS negative for marijuana. positive for benzo Advanced diet- Heart Healthy Diet Prolonged QTc; Bradycardia EKG (03/27/19): Qtc > 500 Avoid Antiemetics Will not start BB due to bradycardia Transaminitis May be side effect from Zofran, which we are holding for prolonged Qtc Continue to monitor Chest pain AMOL x 3 negative EKG (03/28/19): Sinus roberto @51 bpm, prolonged Qtc Gastritis Avoid NSAIDs and Aspirin Protonix 40 IV qd Hypokalemia Likely 2/2 N/V Continue to monitor Hypotension Stable, will continue to monitor EKG showed sinus roberto with prolonged QTc. troponins x [address] of head showed no acute abnormality Prophylaxis Lovenox SCDs Protonix Ensure BID PT/OT Disposition: pending [facility] placement
--- NOTE | 2019-04-01 14:34 | CARD ---
APPROVED REPORT Date of service: 03/28/2019 EKG Measurement Heart [id number] <Conclusion> Sinus bradycardia Prolonged QT Abnormal ECG
[2019-04-02] MEDS: Enoxaparin 40 mg Syringe SC SCH (10:18)
[2019-04-02] MEDS: Pantoprazole 40 mg EC Tab PO SCH (10:18)
[2019-04-02 11:52] LABS: BASO % 0.8 % (0.0-2.0); EOS # 0.2 K/uL (0.0-0.7); EOS % 4.7 % (0.0-4.0); HEMOGLOBIN 13.6 g/dL (11.0-16.0); LYMPH # 1.3 K/uL (1.0-4.3); LYMPH % 30.2 % (20.0-40.0); MEAN CELL VOLUME 85.4 fL (81.0-99.0); MEAN CORPUSCULAR HEMOGLOBIN 29.2 pg (27.0-31.0); MEAN CORPUSCULAR HGB CONC 34.2 g/dL (33.0-37.0); MEAN PLATELET VOLUME 10.8 fL (7.2-11.7); MONO # 0.5 K/uL (0.0-0.8); MONO % 12.5 % (0.0-10.0); NEUT # 2.2 K/uL (1.8-7.0); NEUT % 51.8 % (50.0-75.0); NRBC % 0.1 % (0.0-2.0); RBC 4.66 Mil/uL (3.80-5.20); RED CELL DISTRIBUTION WIDTH 14.6 % (11.5-14.5); WHITE BLOOD COUNT 4.3 K/uL (4.8-10.8)
[2019-04-02 12:09] LABS: ALBUMIN 3.2 g/dL (3.5-5.0); ALT/SGPT 54 U/L (9-52); AST/SGOT 26 U/L (14-36); BLOOD UREA NITROGEN 12 mg/dL (7-17); CALCIUM 8.8 mg/dl (8.6-10.4); GFR NON-AFRICAN AMERICAN > 60
--- NOTE | 2019-04-02 13:57 | CP.PCM.PN ---
Subjective - Date & Time of Evaluation Date of Evaluation: 04/02/19 Time of Evaluation: 13:52 - Subjective Subjective: Medicine Note for Dr. Montelongo's Service Patient was seen and examined at bedside. Patient reports she still has nausea and vomiting, despite eating a full breakfast, and ordering a full lunch and dinner. Objective - Vital Signs/Intake and Output Vital Signs (last 24 hours): Temp Pulse Resp BP Pulse Ox 98.9 F 70 18 100/68 96 04/02/19 07:00 04/02/19 07:00 04/02/19 07:00 04/02/19 07:00 04/02/19 07:00 - Medications Medications: Current Medications Dronabinol (Marinol) 2.[address] [facility] Last Admin: 04/02/19 10:22 Dose: 2.5 mg Enoxaparin Sodium (Lovenox) [address] [facility] Last Admin: 04/02/19 10:18 Dose: Not Given Pantoprazole Sodium (Protonix Ec Tab) [address] [facility] Last Admin: 04/02/19 10:18 Dose: 40 mg Potassium Phos/Sodium Phos (Neutra-Phos) [address] [facility] Stop: 04/03/19 15:01 - Labs Labs: 04/02/19 11:42 04/02/19 11:42 - Additional Findings Additional findings: - Constitutional Appears: No Acute Distress - Head Exam Head Exam: ATRAUMATIC, NORMAL INSPECTION - Eye Exam Eye Exam: EOMI - ENT Exam ENT Exam: Mucous Membranes Moist - Respiratory Exam Respiratory Exam: Clear to Ausculation Bilateral, NORMAL BREATHING PATTERN. absent: Rales, Rhonchi, Wheezes, Respiratory Distress - Cardiovascular Exam Cardiovascular Exam: REGULAR RHYTHM, +S1, +S2 - GI/Abdominal Exam GI & Abdominal Exam: Soft, Normal Bowel Sounds. absent: Distended, Firm, Tenderness - Neurological Exam Neurological Exam: Alert, Awake, Oriented x3 - Psychiatric Exam Psychiatric exam: Normal Affect, Normal Mood - Skin Skin Exam: Dry, Normal Color, Warm Assessment and Plan - Assessment and Plan (Free Text) Plan: Intractable vomiting; Gastritis; Small hernia Imaging: -CT of abd/pelvis with IV contrast showed diffuse gastric wall thickening; focal area of abnormal attenuation in posterior segment of hepatic lobe -EGD (03/26/19): small hiatal hernia, Gastritis, Reflux esophagitis * Biopsy of antrum/esophagus/duodenum: negative for h pylori/fungal organisms, mild chronic inflammation Management: - Refrain from Zofran due to prolonged QTc - Marinol BID - UDS negative for marijuana. positive for benzo - Advanced diet- Heart Healthy Diet Transaminitis - resolving - May be side effect from Zofran, which we are holding for prolonged Qtc - Continue to monitor Gastritis - Avoid NSAIDs and Aspirin - Protonix 40 IV qd Prolonged QTc; Bradycardia - RESOLVED - EKG (03/27/19): Qtc > 500 - Avoid Antiemetics - Will not start BB due to bradycardia - Repeat EKG - QTc normalized 04/02/19 Hypokalemia - RESOLVED - Likely 2/2 N/V - Continue to monitor Chest pain - RESOLVED - AMOL x 3 negative - EKG (03/28/19): Sinus roberto @51 bpm, prolonged Qtc Hypotension - RESOLVED - Stable, will continue to monitor - EKG showed sinus roberto with prolonged QTc. troponins x 3 negative - CT of head showed no acute abnormality Prophylaxis - Lovenox - SCDs - Protonix - Ensure BID - PT/OT Disposition: pending [facility] placement DW Dr. Montelongo, Sujey Albert DO, PGY2
[2019-04-02] MEDS: Potassium & Sodium Phosphate PO SCH ×2 (14:38→17:14)
[2019-04-02 17:06] VITALS: RESP 20
[2019-04-03 04:29] VITALS: O2SAT 97
[2019-04-03 07:41] VITALS: BP 112/77; PULSE 90; TEMP 98.7
[2019-04-03 08:13] LABS: BASO % 1.1 % (0.0-2.0); EOS # 0.2 K/uL (0.0-0.7); HEMOGLOBIN 12.9 g/dL (11.0-16.0); LYMPH # 1.4 K/uL (1.0-4.3); LYMPH % 35.8 % (20.0-40.0); MEAN CELL VOLUME 85.6 fL (81.0-99.0); MEAN CORPUSCULAR HEMOGLOBIN 28.9 pg (27.0-31.0); MEAN CORPUSCULAR HGB CONC 33.7 g/dL (33.0-37.0); MEAN PLATELET VOLUME 10.8 fL (7.2-11.7); MONO # 0.6 K/uL (0.0-0.8); MONO % 15.2 % (0.0-10.0); NEUT # 1.6 K/uL (1.8-7.0); NEUT % 42.9 % (50.0-75.0); NRBC % 0.1 % (0.0-2.0); RBC 4.46 Mil/uL (3.80-5.20); RED CELL DISTRIBUTION WIDTH 14.8 % (11.5-14.5); WHITE BLOOD COUNT 3.8 K/uL (4.8-10.8)
[2019-04-03 08:34] LABS: ALB/GLOB RATIO 1.1 (1.0-2.1); ALBUMIN 3.1 g/dL (3.5-5.0); ALT/SGPT 48 U/L (9-52); AST/SGOT 23 U/L (14-36); BLOOD UREA NITROGEN 10 mg/dL (7-17); CALCIUM 8.4 mg/dl (8.6-10.4); GFR NON-AFRICAN AMERICAN > 60
--- NOTE | 2019-04-03 09:21 | CP.PCM.PN ---
Subjective - Date & Time of Evaluation Date of Evaluation: 04/03/19 Time of Evaluation: :19 - Subjective Subjective: Medicine Note for Dr. Montelongo's Service Patient was seen and examined at bedside. Patient reports the nausea and vomiting has subsided. She is tolerating her meals. Objective - Vital Signs/Intake and Output Vital Signs (last 24 hours): Temp Pulse Resp BP Pulse Ox 98.7 F 90 20 112/77 97 04/03/19 07:00 04/03/19 07:00 04/03/19 07:00 04/03/19 07:00 04/03/19 07:00 Intake and Output: 04/03/19 04/03/19 06:59 18:59 Intake Total 300 Balance 300 - Medications Medications: Current Medications Dronabinol (Marinol) 2.5 mg PO BID [facility] Last Admin: 04/02/19 17:14 Dose: 2.5 mg Enoxaparin Sodium (Lovenox) 40 mg SC DAILY [facility] Last Admin: 04/02/19 10:18 Dose: Not Given Pantoprazole Sodium (Protonix Ec Tab) 40 mg PO DAILY [facility] Last Admin: 04/02/19 10:18 Dose: 40 mg Potassium Phos/Sodium Phos (Neutra-Phos) 1 pkt PO TID [facility] Stop: 04/03/19 15:01 Last Admin: 04/02/19 17:14 Dose: 1 pkt Potassium Phos/Sodium Phos (Neutra-Phos) 1 pkt PO TID [facility] Stop: 04/04/19 10:01 - Labs Labs: 04/03/19 07:40 04/03/19 07:40 - Additional Findings Additional findings: - Constitutional Appears: No Acute Distress - Head Exam Head Exam: ATRAUMATIC, NORMAL INSPECTION - Eye Exam Eye Exam: EOMI - ENT Exam ENT Exam: Mucous Membranes Moist - Respiratory Exam Respiratory Exam: Clear to Ausculation Bilateral, NORMAL BREATHING PATTERN. absent: Rales, Rhonchi, Wheezes, Respiratory Distress - Cardiovascular Exam Cardiovascular Exam: REGULAR RHYTHM, +S1, +S2 - GI/Abdominal Exam GI & Abdominal Exam: Soft, Normal Bowel Sounds. absent: Distended, Firm, Tenderness - Neurological Exam Neurological Exam: Alert, Awake, Oriented x3 - Psychiatric Exam Psychiatric exam: Normal Affect, Normal Mood - Skin Skin Exam: Dry, Normal Color, Warm Assessment and Plan - Assessment and Plan (Free Text) Plan: Intractable vomiting - RESOLVED Gastritis Small hernia Imaging: -CT of abd/pelvis with IV contrast showed diffuse gastric wall thickening; focal area of abnormal attenuation in posterior segment of hepatic lobe -EGD (03/26/19): small hiatal hernia, Gastritis, Reflux esophagitis * Biopsy of antrum/esophagus/duodenum: negative for h pylori/fungal organisms, mild chronic inflammation Management: - Refrain from Zofran due to prolonged QTc - Marinol BID - UDS negative for marijuana. positive for benzo - Advanced diet- Heart Healthy Diet Transaminitis - resolving - May be side effect from Zofran, which we are holding for prolonged Qtc - Continue to monitor Gastritis - Avoid NSAIDs and Aspirin - Protonix 40 IV qd Prolonged QTc; Bradycardia - RESOLVED - EKG (03/27/19): Qtc > 500 - Avoid Antiemetics - Will not start BB due to bradycardia - Repeat EKG - QTc normalized 04/02/19 Hypokalemia - RESOLVED - Likely 2/2 N/V - Continue to monitor Chest pain - RESOLVED - AMOL x 3 negative - EKG (03/28/19): Sinus roberto @51 bpm, prolonged Qtc Hypotension - RESOLVED - Stable, will continue to monitor - EKG showed sinus roberto with prolonged QTc. troponins x 3 negative - CT of head showed no acute abnormality Prophylaxis - Lovenox - SCDs - Protonix - Ensure BID - PT/OT Disposition: Pending C[facility] placement DW Dr. Montelongo, Sujey Albert DO, PGY2
[2019-04-03] MEDS: Enoxaparin 40 mg Syringe SC SCH (09:35)
[2019-04-03] MEDS: Pantoprazole 40 mg EC Tab PO SCH (09:37)
[2019-04-03] MEDS ORDERED: Potassium & Sodium Phosphate PO SCH (10:00)
--- NOTE | 2019-04-04 00:58 | CARD ---
APPROVED REPORT Date of service: 04/02/2019 EKG Measurement Heart [id number] <Conclusion> Normal sinus rhythm Possible Left atrial enlargement Cannot rule out Anterior infarct, age undetermined Abnormal ECG
== END 2019-04-03 15:50 | disposition home or self-care (01) | DRG 182 ==
LOC: C.ER 14:08 → C.9E 18:42 → C.6T 23:14 → OBSVTOIN 03-29 15:06
PROVIDERS: ADMIT Internal Medicine Pulmonary Disease; ATTEND Internal Medicine Pulmonary Disease
DX: K29.70 Gastritis, unspecified, without bleeding (principal); E87.6 Hypokalemia; D57.40 Sickle-cell thalassemia without crisis; K21.0 Gastro-esophageal reflux disease with esophagitis; K44.9 Diaphragmatic hernia without obstruction or gangrene; M79.7 Fibromyalgia; R07.9 Chest pain, unspecified; R55 Syncope and collapse; R00.1 Bradycardia, unspecified; T45.0X5A Adverse effect of antiallergic and antiemetic drugs, initial encounter; R74.0 Nonspecific elevation of levels of transaminase and lactic acid dehydrogenase [LDH]